=== PATIENT | male | born 1965 | race Caucasian/White ===

== ENCOUNTER 2022-07-23 10:48 | Day surgery (SDC) | payer OTHER ==
[~2022-07-23] VITALS: Ht 175.3 cm; Wt 94.3 kg
[2022-07-23] MEDS ORDERED: fentaNYL citrate 0.05 MG/ML VIAL ONE (13:09)
[2022-07-23] MEDS ORDERED: LIDOCAINE 2% 100 MG/5 ML UJET TP ONE (13:09)
[2022-07-23] MEDS ORDERED: fentaNYL citrate 0.05 MG/ML VIAL IVP ONE (14:00)
== END 2022-07-23 14:55 | disposition home or self-care (01) ==
LOC: MOR 10:48 → MMU 11:20 → MOR 14:55
PROVIDERS: ATTEND Internal Medicine Gastroenterology
DX: Z12.11 Encounter for screening for malignant neoplasm of colon (principal); K63.5 Polyp of colon; K57.30 Diverticulosis of large intestine without perforation or abscess without bleeding; Z79.82 Long term (current) use of aspirin; Z79.899 Other long term (current) drug therapy
CPT/HCPCS: 45385; J3010